=== PATIENT | male | born 1965 | race African-American/Black ===

== ENCOUNTER 2018-02-04 10:18 | Emergency (ER) | payer OTHER ==
[~2018-02-04] VITALS: Ht 170.2 cm; Wt 94.3 kg
== END 2018-02-04 11:44 | disposition home or self-care (01) ==
LOC: ER 10:18
DX: S92.252A Displaced fracture of navicular [scaphoid] of left foot, initial encounter for closed fracture (principal); S92.112A Displaced fracture of neck of left talus, initial encounter for closed fracture; S93.402A Sprain of unspecified ligament of left ankle, initial encounter; F17.200 Nicotine dependence, unspecified, uncomplicated; V19.9XXA Pedal cyclist (driver) (passenger) injured in unspecified traffic accident, initial encounter
CPT/HCPCS: 29515; 73630; 99281-25

== ENCOUNTER 2018-02-05 11:10 | Emergency (ER) | payer OTHER ==
[~2018-02-05] VITALS: Ht 170.2 cm; Wt 94.3 kg
== END 2018-02-05 11:36 | disposition home or self-care (01) ==
LOC: ER 11:10
DX: S92.252A Displaced fracture of navicular [scaphoid] of left foot, initial encounter for closed fracture (principal); X58.XXXA Exposure to other specified factors, initial encounter; F17.200 Nicotine dependence, unspecified, uncomplicated